=== PATIENT | female | born 1955 | race Caucasian/White ===

== ENCOUNTER → 2024-01-23 06:17 | Day surgery (SDC) | payer MEDICARE, SELFPAY | LOC: GI 06:17 | PROVIDERS: ATTENDING PHYSICIAN Internal Medicine Gastroenterology; FAMILY PHYSICIAN Family Medicine | DX: Z12.11 Encounter for screening for malignant neoplasm of colon (principal); R13.10 Dysphagia, unspecified; D12.2 Benign neoplasm of ascending colon; D12.4 Benign neoplasm of descending colon; K62.1 Rectal polyp; K31.A19 Gastric intestinal metaplasia without dysplasia, unspecified site; K22.70 Barrett's esophagus without dysplasia; Z86.010 Personal history of colon polyps | CPT/HCPCS: 45385; 45380; 43239; 88305 ==

== ENCOUNTER → 2024-03-06 13:36 | Outpatient (REF) | payer MEDICARE, SELFPAY | LOC: RAD 13:36 | PROVIDERS: ATTENDING PHYSICIAN Obstetrics & Gynecology | DX: Z78.0 Asymptomatic menopausal state (principal) | CPT/HCPCS: 77080 ==

== ENCOUNTER → 2024-03-07 15:13 | Outpatient (REF) | payer MEDICARE, SELFPAY | LOC: RAD 15:13 | PROVIDERS: ATTENDING PHYSICIAN Obstetrics & Gynecology | DX: R10.32 Left lower quadrant pain (principal) | CPT/HCPCS: 76830; 76856 ==

== ENCOUNTER 2024-10-17 06:23 | Day surgery (SDC) | payer MEDICARE, SELFPAY | END 2024-10-17 10:12 | disposition home or self-care (01) | LOC: GI 06:23 | PROVIDERS: ATTENDING PHYSICIAN Internal Medicine Gastroenterology; FAMILY PHYSICIAN Family Medicine | DX: K22.89 Other specified disease of esophagus (principal); K44.9 Diaphragmatic hernia without obstruction or gangrene; Z87.19 Personal history of other diseases of the digestive system | CPT/HCPCS: 43239; 88305 ==